=== PATIENT | female | born 1945 | race Two or more races ===

== ENCOUNTER 2016-08-31 09:57 | Day surgery (SDC) | payer MEDICARE ==
[~2016-08-31 09:57] MED LIST: FENTANYL 250 MCG/5 ML AMP IV PRN; LACTATED RINGERS 1,000 ML IV SCH; MIDAZOLAM HCL 5 MG/5 ML VIAL IV PRN
[2016-08-31] MEDS ORDERED: LACTATED RINGERS 1,000 ML ONE (10:16)
[2016-08-31] MEDS ORDERED: IV START KIT ONE (10:16)
[2016-08-31] MEDS ORDERED: FENTANYL 5 ML ONE (10:19)
[2016-08-31] MEDS ORDERED: MIDAZOLAM HCL 5 MG/5 ML VIAL ONE (10:19)
== END 2016-08-31 11:40 | disposition home or self-care (01) ==
LOC: SDC 09:57
PROVIDERS: ATTEND Internal Medicine Gastroenterology
PROC: 0DJD8ZZ Inspection of Lower Intestinal Tract, Via Natural or Artificial Opening Endoscopic (ICD-10-PCS; principal; 2016-08-31)
DX: Z08 Encounter for follow-up examination after completed treatment for malignant neoplasm (principal); I10 Essential (primary) hypertension; E78.5 Hyperlipidemia, unspecified; F17.200 Nicotine dependence, unspecified, uncomplicated; M81.0 Age-related osteoporosis without current pathological fracture